=== PATIENT | female | born 1975 | race Two or more races ===

== ENCOUNTER 2024-05-14 06:55 | Emergency (ER) | payer OTHER ==
[~2024-05-14] VITALS: Ht 172.7 cm; Wt 88.5 kg
[2024-05-14] MEDS ORDERED: TRIAMCINOLONE ACETONIDE 40 MG/ML VIAL IJ STA (08:38)
[2024-05-14] MEDS ORDERED: TRIAMCINOLONE ACETONIDE 40 MG/ML VIAL ONE (08:57)
[2024-05-14] MEDS ORDERED: POVIDONE-IODINE 118 ML BOTT TOP ONE (09:08)
== END 2024-05-14 09:26 | disposition home or self-care (01) ==
LOC: ER 06:56
DX: M75.52 Bursitis of left shoulder (principal)